=== PATIENT | female | born 1975 | race African-American/Black ===

== ENCOUNTER 2019-06-30 10:16 | Emergency (ER) | payer OTHER, SELFPAY ==
[2019-06-30] MEDS ORDERED: Ibuprofen 800 MG TAB ONE (11:17)
[2019-06-30] MEDS ORDERED: Acetaminophen 500 MG TAB ONE (11:17)
== END 2019-06-30 12:28 | disposition home or self-care (01) ==
LOC: ERS 10:16
DX: J02.9 Acute pharyngitis, unspecified (principal); D50.9 Iron deficiency anemia, unspecified; E78.5 Hyperlipidemia, unspecified; E78.00 Pure hypercholesterolemia, unspecified; F32.9 Major depressive disorder, single episode, unspecified
CPT/HCPCS: 87081; 87430; 87804; 99283

== ENCOUNTER 2020-03-12 07:40 | Emergency (ER) | payer OTHER, SELFPAY ==
[2020-03-13 12:14] LABS: SARS-CoV-2 MS2 Positive; SARS-CoV-2 N Gene Negative; SARS-CoV-2 S Gene Negative; SARS-CoV-2 orf1ab Negative
== END 2020-03-12 08:41 | disposition home or self-care (01) ==
LOC: ERS 07:40
DX: R50.9 Fever, unspecified (principal); Z20.828 Contact with and (suspected) exposure to other viral communicable diseases; E78.5 Hyperlipidemia, unspecified; E78.00 Pure hypercholesterolemia, unspecified; D57.00 Hb-SS disease with crisis, unspecified; F32.9 Major depressive disorder, single episode, unspecified; D50.9 Iron deficiency anemia, unspecified
CPT/HCPCS: 87635; 99283; U0003

== ENCOUNTER 2025-09-05 14:40 | Emergency (ER) | payer MEDICAID, OTHER ==
[~2025-09-05 14:40] MED LIST: Iopamidol-370 76% 500 ML MDV (1 ML CHARGE) ONE
[2025-09-05] MEDS ORDERED: Ketorolac Tromethamine 30 MG (1 mL) VIAL ONE (15:56)
[2025-09-05] MEDS ORDERED: HYDROcodone/Acetaminophen 10/325 mg Tablet ONE (15:56)
[2025-09-05] MEDS ORDERED: Dexamethasone 10 MG/ML VIAL ONE (15:56)
[2025-09-05 16:30] LABS: #Basophils 0.04 10x3/uL (0.0-0.2); #Eosinophils 0.11 10x3/uL (0.0-0.7); #Monocytes 0.47 10x3/uL (0.11-0.59); #Neutrophils 3.63 10x3/uL (1.40-6.50); %Basophils 0.6 % (0.0-1.0); %Eosinophils 1.5 % (0.0-10.0); %Lymphocytes 40.6 % (21.0-51.0); %Monocytes 6.5 % (0.0-10.0); %Neutrophils 50.4 % (42.0-75.0); Hematocrit 34.7 % (36.0-47.0); Hemoglobin 11.9 g/dL (12.0-16.0); Mean Corpuscular Hemoglobin 30.2 pg (27.0-31.0); Mean Corpuscular Volume 88.1 fL (78.0-98.0); Platelet Count 289 10x3/uL (130-400); Red Blood Cell (RBC) Count 3.94 mill/uL (4.20-5.40); White Blood Cell (WBC) Count 7.21 10x3/uL (4.8-10.8)
[2025-09-05 16:41] LABS: BHCG - Serum Negative (NEGATIVE); Pregs Control Background? CLEAR/WHITE (CLR/WHITE); Pregs Control Bar Appear? YES (CONTROL BAR)
[2025-09-05 16:48] LABS: ALT (SGPT) 17 U/L (Less than 34); AST (SGOT) 20 U/L (11-34); Albumin 3.9 g/dL (3.1-4.5); Alkaline Phosphatase 91 U/L (40-110); Anion Gap 15 mmol/L (10-20); BUN (Urea Nitrogen) 9 mg/dL (7.0-18.7); Bilirubin, Total 0.2 mg/dL (0.3-1.2); Calc. Creatinine Clearance 0 mL/min (70-130); Calcium 9.1 mg/dL (7.8-10.44); Carbon Dioxide 23 mmol/L (22-29); Chloride 107 mmol/L (98-107); Globulin 4.1 g/dL (2.4-3.5); Glucose 116 mg/dL (70-105); Potassium 3.7 mmol/L (3.5-5.1); Sodium 141 mmol/L (136-145)
== END 2025-09-05 17:55 | disposition home or self-care (01) ==
LOC: ERS 14:40
DX: S16.1XXA Strain of muscle, fascia and tendon at neck level, initial encounter (principal); R07.89 Other chest pain; F17.290 Nicotine dependence, other tobacco product, uncomplicated; X58.XXXA Exposure to other specified factors, initial encounter
CPT/HCPCS: 71045; 71275; 80053; 84484; 84703; 85025; 85379; 93005; 96374; 96375; J1100; J1885; J2060; Q9967